=== PATIENT | female | born 1990 | race Caucasian/White ===

== ENCOUNTER 2019-09-04 20:10 | Emergency (ER) | payer OTHER ==
[~2019-09-04] VITALS: Ht 154.9 cm; Wt 113.4 kg
[~2019-09-04 20:10] MED LIST: SPRINTEC1 EACH
[2019-09-04] MEDS ORDERED: AMOXIL 875 MG875 M1 PO (20:27)
[2019-09-04] MEDS ORDERED: PROMETHAZINE-D473 M1 PO (20:27)
[2019-09-04] MEDS ORDERED: TESSALON PERLE100 MG PO (20:28)
[2019-09-04 20:48] LABS: INFLUENZA A ANTIGEN Positive (Negative); INFLUENZA B ANTIGEN Negative (Negative)
[2019-09-04 21:06] LABS: ABSOLUTE EOSINOPHILS 0.1 thou/uL (0.0-0.7); ABSOLUTE LYMPHOCYTES 0.3 thou/uL (0.8-5.3); ABSOLUTE MONOCYTES 0.6 thou/uL (0.0-1.2); ABSOLUTE NEUTROPHILS 5.6 thou/uL (1.6-8.1); BASOPHILS 0.4 %; EOSINOPHILS 0.8 %; HEMATOCRIT 38.6 % (37.0-47.0); HEMOGLOBIN 13.4 gm/dL (12.0-15.0); LYMPHOCYTES 5.1 %; MCH 32.1 pg (26.0-34.0); MCHC 34.7 g/dL (28.0-37.0); MCV 92.6 fL (80.0-100.0); MONOCYTES 8.8 %; NUCLEATED RBCS 0 /100WBC; PLATELET COUNT* 225 thou/uL (150-400); POLYS 84.9 %; RBC 4.17 mil/uL (4.20-5.00); RDW-CV 12.6 % (10.5-14.5); WBC 6.6 thou/uL (4.0-11.0)
[2019-09-04 21:15] LABS: CALCIUM 7.9 mg/dL (8.5-10.1); CREATININE 0.9 mg/dL (0.6-1.3); POTASSIUM 3.4 mmol/L (3.5-5.1)
[2019-09-04 21:20] LABS: ALBUMIN 3.7 g/dL (3.4-5.0); TOTAL BILIRUBIN 0.5 mg/dL (<0.1-1.0); TOTAL PROTEIN 6.8 g/dL (6.4-8.2)
[2019-09-04] MEDS ORDERED: PROAIR HFA8.5 GM INH (22:15)
[2019-09-04] MEDS ORDERED: TAMIFLU75 MG PO (22:15)
[2019-09-04] MEDS ORDERED: ONDANSETRON ODT4 MG PO (22:15)
[2019-09-04] MEDS ORDERED: PROMETHAZI6.25 MG/5 PO (22:15)
[2019-09-04 22:42] VITALS: BP 127/80
== END 2019-09-04 22:43 | disposition home or self-care (01) ==
LOC: M.ERS 20:10
PROVIDERS: Physician Assistant
DX: J10.1 Influenza due to other identified influenza virus with other respiratory manifestations (principal); J20.9 Acute bronchitis, unspecified; R11.2 Nausea with vomiting, unspecified

== ENCOUNTER 2021-09-01 16:07 | Inpatient (IN) | payer OTHER ==
[~2021-09-01] VITALS: Ht 154.9 cm; Wt 103.0 kg
[~2021-09-01 16:07] MED LIST changes: +AMOXIL 875 MG875 M1 PO; +ONDANSETRON ODT4 MG PO; +PROAIR HFA8.5 GM INH; +PROMETHAZI6.25 MG/5 PO; +PROMETHAZINE-D473 M1 PO; +TAMIFLU75 MG PO; +TESSALON PERLE100 MG PO
[2021-09-01 16:53] VITALS: BP 153/81
[2021-09-01 17:46] LABS: ABSOLUTE LYMPHOCYTES 0.5 thou/uL (0.8-5.3); ABSOLUTE MONOCYTES 0.1 thou/uL (0.0-1.2); ABSOLUTE NEUTROPHILS 2.1 thou/uL (1.6-8.1); BASOPHILS 0.6 %; HEMOGLOBIN 13.9 gm/dL (12.0-15.0); LYMPHOCYTES 19.9 %; MCH 31.5 pg (26.0-34.0); MCV 92.6 fL (80.0-100.0); MPV 8.2 fl. (7.2-11.1); NUCLEATED RBCS 0 /100WBC; PLATELET COUNT* 206 thou/uL (150-400); POLYS 75.5 %; RBC 4.42 mil/uL (4.20-5.00); RDW-CV 12.9 % (10.5-14.5); WBC 2.7 thou/uL (4.0-11.0)
[2021-09-01 17:52] LABS: CALCIUM 8.2 mg/dL (8.5-10.1); CREATININE 0.9 mg/dL (0.6-1.3); POTASSIUM 3.3 mmol/L (3.5-5.1)
[2021-09-01 18:07] LABS: ALBUMIN 3.2 g/dL (3.4-5.0); TOTAL BILIRUBIN 0.5 mg/dL (<0.1-1.0); TOTAL PROTEIN 7.1 g/dL (6.4-8.2)
[2021-09-01 20:21] LABS: INFLUENZA A ANTIGEN Negative (Negative); INFLUENZA B ANTIGEN Negative (Negative)
[2021-09-01 20:48] LABS: BE -2.3 mmol/L (-2 to +3); PCO2 32.2 mmHg (35.0-45.0); pH 7.434 (7.340-7.450)
[2021-09-01 23:26] VITALS: BP 135/54
[2021-09-02 04:04] VITALS: BP 123/75
[2021-09-02 08:00] VITALS: BP 147/77
--- NOTE | 2021-09-02 10:38 | EKG ---
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 : 1990 Requested By: Carmita Hernandez Order Number: [id number] MD: Shalom Sheridan Measurements Intervals [place] Rate: 126 P: 27 AK: 125 QRS: 45 QRSD: 80 T: -25 QT: 297 QTc: 430 Interpretive Statements Sinus tachycardia RSR' in V1 or V2, probably normal variant Borderline Q waves in inferior leads Baseline wander in lead(s) V6 No previous ECG available for comparison Electronically Signed On 09-02-2021 10:38:30 EROSION CONTROL COORDINATOR by Shalom Sheridan [email or web address] <ELECTRONICALLY SIGNED> By: Shalom Sheridan MD, FACC 09/02/21 1038 1746 1746 Shalom Sheridan MD, FAC /EPI
[2021-09-02 12:00] VITALS: BP 142/72
[2021-09-02 16:00] VITALS: BP 140/66
[2021-09-03] VITALS (10 sets, daily range): BP systolic 110–146; BP diastolic 66–98
[2021-09-03 01:49] LABS: BE -2.9 mmol/L (-2 to +3); PCO2 33.1 mmHg (35.0-45.0); PO2 79.5 mmHg (75.0-100.0); pH 7.416 (7.340-7.450)
[2021-09-03 04:39] LABS: HEMATOCRIT 37.8 % (37.0-47.0); HEMOGLOBIN 12.6 gm/dL (12.0-15.0); MCH 31.2 pg (26.0-34.0); MCHC 33.3 g/dL (28.0-37.0); MCV 93.6 fL (80.0-100.0); MPV 8.7 fl. (7.2-11.1); RBC 4.04 mil/uL (4.20-5.00); RDW-CV 12.9 % (10.5-14.5); WBC 5.6 thou/uL (4.0-11.0)
[2021-09-03 05:36] LABS: ALBUMIN 2.7 g/dL (3.4-5.0); CALCIUM 7.7 mg/dL (8.5-10.1); CREATININE 0.7 mg/dL (0.6-1.3); POTASSIUM 4.3 mmol/L (3.5-5.1); TOTAL BILIRUBIN 0.5 mg/dL (<0.1-1.0); TOTAL PROTEIN 5.7 g/dL (6.4-8.2)
[2021-09-03 18:01] LABS: BE -1.8 mmol/L (-2 to +3); PCO2 32.4 mmHg (35.0-45.0); PO2 112.6 mmHg (75.0-100.0)
--- NOTE | 2021-09-03 18:21 | CON ---
[address] [address] CONSULTATION Name: BRIDGETTE DELAROSA Room: [address] IN M.R.#: [id number] Admission: 09/01/21 Attend Phys: Etienne Kerr Discharge: Date of : 89 Report #: [id number] THIS REPORT FOR: cc: FAM - No family physician/PCP FAM - No family physician/PCP True Altamirano MD ~ DATE OF CONSULTATION: 09/03/[address] Frieda Gaming. INDICATION FOR CONSULTATION: COVID-19 and also hemoptysis. HISTORY OF PRESENT ILLNESS: This is a 30-year-old female. She does have an elevated body mass index at around 38. She does not have any other past medical history. She is a lifetime nonsmoker, has a history of marijuana use, now is here with respiratory illness, short of breath, coughing, initially also had decrease in appetite and diarrhea as well as chills and some left lower quadrant abdominal pain, was found to be positive for COVID, initially was resistant to remdesivir, but later on agreed. There has been a progressive worsening in her respiratory status since admission. Initially, she was on 2 liters nasal cannula. This has progressed to her now being on 100% FiO2 with a BiPAP. The patient is significantly tachypneic with respiratory rate around 45. She is also tachycardic, heart rate has been 110-120, however, we have been able to bring up her O2 saturations into the mid 90s. The patient is able to provide only a limited history at this time. I am told that she did have some hemoptysis, although I do not have details available. The patient is unable to provide a full review of systems at this time. PAST MEDICAL HISTORY: She is overweight with a body mass index of 38, otherwise no other known past medical history. CURRENT MEDICATIONS: List in [employer] reviewed. HOME MEDICATIONS: There is an old list, which is in [employer], which is also reviewed. ALLERGIES: No known drug allergies. SOCIAL HISTORY: History of marijuana use. No known history of smoking or excessive alcohol use. FAMILY HISTORY: No pertinent family history. VACCINATION HISTORY: Not vaccinated [place]19[place] [address] CONSULTATION Name: BRIDGETTE DELAROSA Room: [address]#: [id number] Admission: 09/01/21 Attend Phys: Etienne Kerr Discharge: Date of : 89 Report #: [id number] PHYSICAL EXAMINATION: GENERAL: She is awake. She is tachycardic and tachypneic as described. VITAL SIGNS: Vitals are in [facility] reviewed, on BiPAP. NECK: Does not show raised JVP. CHEST: Breath sounds are bilaterally equal. No added sounds. Accessory muscle use. HEART: Regular. No murmur. ABDOMEN: Soft, nontender. EXTREMITIES: Lower extremities, trace edema, no calf tenderness. LABORATORY DATA: The patient's chest x-rays, CTA chest, CT abdomen and pelvis as well as lab work is in [facility] and this is all reviewed. ASSESSMENT AND PLAN: 1. Acute hypoxemic respiratory failure secondary to COVID-19. I adjusted the BiPAP. I will start a Precedex drip. We will give her 80 of Lasix IV stat. Hopefully, the patient's respiratory status will improve as a result of this therapy. If this is not the case, then we will need to endotracheally intubate in the near future. We will follow her very closely. 2. COVID-19. Agree with dexamethasone. We will also continue with remdesivir. Follow LFTs. I requested pharmacy to also get approval from Dr. Sheridan for 1 dose of Actemra. Convalescent plasma is no longer recommended for the new emergency use authorization from FDA except for immunocompromised patients. 3. Pulmonary infiltrates. Continue doxycycline. I switched ceftriaxone over to cefepime. I will try to get more history regarding how much hemoptysis the patient has had. If the patient has had significant hemoptysis, then I will be inclined to start either vancomycin or linezolid and switch doxycycline over to azithromycin. The patient's test is noted to be negative. 4. Hemoptysis. See discussion above. 5. Fluid overload. Lasix as above. 6. IV access as a PICC line. 7. Deep venous thrombosis prophylaxis, noted to be on intermediate dose Lovenox at this time. We will follow. 8. Gastrointestinal prophylaxis, Protonix. 9. Clostridium difficile prophylaxis, Lactinex. The patient is critically ill at this time. Total time spent providing critical care to this patient today exceeds 39 minutes. <ELECTRONICALLY SIGNED> By: True Altamirano MD 09/03/21 1821 1316 1404Agold Altamirano MD /nt
[2021-09-04] VITALS (33 sets, daily range): BP systolic 90–161; BP diastolic 48–101
[2021-09-04 05:27] LABS: ABSOLUTE LYMPHOCYTES 0.3 thou/uL (0.8-5.3); ABSOLUTE MONOCYTES 0.2 thou/uL (0.0-1.2); ABSOLUTE NEUTROPHILS 2.4 thou/uL (1.6-8.1); BASOPHILS 0.3 %; HEMATOCRIT 38.1 % (37.0-47.0); LYMPHOCYTES 11.7 %; MCH 32.1 pg (26.0-34.0); MCHC 34.1 g/dL (28.0-37.0); MCV 94.2 fL (80.0-100.0); MONOCYTES 5.4 %; MPV 8.4 fl. (7.2-11.1); NUCLEATED RBCS 0 /100WBC; PLATELET COUNT* 220 thou/uL (150-400); POLYS 82.6 %; RBC 4.05 mil/uL (4.20-5.00); RDW-CV 12.9 % (10.5-14.5); WBC 2.9 thou/uL (4.0-11.0)
[2021-09-04 06:11] LABS: ALBUMIN 2.3 g/dL (3.4-5.0); CALCIUM 6.9 mg/dL (8.5-10.1); CREATININE 0.7 mg/dL (0.6-1.3); MAGNESIUM 2.5 mg/dL (1.8-2.4); POTASSIUM 4.3 mmol/L (3.5-5.1); TOTAL BILIRUBIN 0.5 mg/dL (<0.1-1.0)
[2021-09-04 08:43] LABS: BE 0.2 mmol/L (-2 to +3); PO2 66.1 mmHg (75.0-100.0); pH 7.395 (7.340-7.450)
[2021-09-05] VITALS (75 sets, daily range): BP systolic 75–149; BP diastolic 46–92
[2021-09-05 06:13] LABS: HEMATOCRIT 36.3 % (37.0-47.0); HEMOGLOBIN 12.3 gm/dL (12.0-15.0); MCHC 33.7 g/dL (28.0-37.0); MCV 94.7 fL (80.0-100.0); MPV 8.6 fl. (7.2-11.1); NUCLEATED RBCS 0 /100WBC; PLATELET COUNT* 243 thou/uL (150-400); RBC 3.84 mil/uL (4.20-5.00); RDW-CV 12.6 % (10.5-14.5)
[2021-09-05 06:24] LABS: ABSOLUTE LYMPHOCYTES 0.5 thou/uL (0.8-5.3); WBC 7.2 thou/uL (4.0-11.0)
[2021-09-05 06:25] LABS: ABSOLUTE EOSINOPHILS 0.1 thou/uL (0.0-0.7); ABSOLUTE MONOCYTES 0.4 thou/uL (0.0-1.2); ABSOLUTE NEUTROPHILS 6.3 thou/uL (1.6-8.1)
[2021-09-05 06:59] LABS: APTT 26.7 Seconds (25.0-31.3); INR 1.1; PROTIME 11.5 Seconds (9.20-11.50)
[2021-09-05 07:06] LABS: PHOSPHORUS* 2.8 mg/dL (2.5-4.9)
[2021-09-05 07:07] LABS: ALBUMIN 2.3 g/dL (3.4-5.0); CALCIUM 7.4 mg/dL (8.5-10.1); CREATININE 1.1 mg/dL (0.6-1.3); MAGNESIUM 2.8 mg/dL (1.8-2.4); POTASSIUM 3.7 mmol/L (3.5-5.1); TOTAL BILIRUBIN 0.5 mg/dL (<0.1-1.0); TOTAL PROTEIN 5.6 g/dL (6.4-8.2)
[2021-09-05 09:30] LABS: BE 0.6 mmol/L (-2 to +3); PCO2 47.1 mmHg (35.0-45.0); PO2 89.3 mmHg (75.0-100.0); pH 7.367 (7.340-7.450)
[2021-09-05 22:06] LABS: MYCOPLASMA PNEUMONIA IgM <770 U/mL (0-769)
[2021-09-05 23:06] LABS: MYCOPLASMA PNEUMONIA IgG 150 U/mL (0-99)
[2021-09-06] VITALS (42 sets, daily range): BP systolic 119–182; BP diastolic 81–104
[2021-09-06 05:43] LABS: ABSOLUTE LYMPHOCYTES 0.6 thou/uL (0.8-5.3); ABSOLUTE MONOCYTES 0.4 thou/uL (0.0-1.2); ABSOLUTE NEUTROPHILS 7.2 thou/uL (1.6-8.1); BASOPHILS 0.2 %; HEMATOCRIT 37.5 % (37.0-47.0); HEMOGLOBIN 12.7 gm/dL (12.0-15.0); LYMPHOCYTES 6.7 %; MCH 31.7 pg (26.0-34.0); MCHC 33.7 g/dL (28.0-37.0); MCV 94.1 fL (80.0-100.0); MPV 8.7 fl. (7.2-11.1); NUCLEATED RBCS 0 /100WBC; PLATELET COUNT* 178 thou/uL (150-400); POLYS 88.1 %; RBC 3.99 mil/uL (4.20-5.00); RDW-CV 12.5 % (10.5-14.5); WBC 8.2 thou/uL (4.0-11.0)
[2021-09-06 06:22] LABS: ALBUMIN 2.3 g/dL (3.4-5.0); CALCIUM 7.6 mg/dL (8.5-10.1); CREATININE 0.8 mg/dL (0.6-1.3); MAGNESIUM 2.6 mg/dL (1.8-2.4); POTASSIUM 4.2 mmol/L (3.5-5.1); TOTAL BILIRUBIN 0.4 mg/dL (<0.1-1.0); TOTAL PROTEIN 5.6 g/dL (6.4-8.2)
[2021-09-06 08:41] LABS: BE 2.5 mmol/L (-2 to +3); PCO2 45.3 mmHg (35.0-45.0); PO2 81.2 mmHg (75.0-100.0); pH 7.405 (7.340-7.450)
[2021-09-07] VITALS (45 sets, daily range): BP systolic 110–160; BP diastolic 52–90
[2021-09-07 04:32] LABS: HEMATOCRIT 38.5 % (37.0-47.0); HEMOGLOBIN 12.7 gm/dL (12.0-15.0); MCH 31.5 pg (26.0-34.0); MCV 95.6 fL (80.0-100.0); MPV 8.8 fl. (7.2-11.1); RBC 4.02 mil/uL (4.20-5.00); RDW-CV 12.7 % (10.5-14.5); WBC 12.9 thou/uL (4.0-11.0)
[2021-09-07 04:52] LABS: CALCIUM 7.5 mg/dL (8.5-10.1); CREATININE 0.8 mg/dL (0.6-1.3); POTASSIUM 4.3 mmol/L (3.5-5.1)
[2021-09-08] VITALS (15 sets, daily range): BP systolic 92–139; BP diastolic 58–88
[2021-09-08 05:02] LABS: HEMATOCRIT 38.5 % (37.0-47.0); HEMOGLOBIN 12.6 gm/dL (12.0-15.0); MCH 30.9 pg (26.0-34.0); MCHC 32.8 g/dL (28.0-37.0); MCV 94.3 fL (80.0-100.0); MPV 8.5 fl. (7.2-11.1); RBC 4.08 mil/uL (4.20-5.00); RDW-CV 12.5 % (10.5-14.5); WBC 18.7 thou/uL (4.0-11.0)
[2021-09-08 05:11] LABS: CALCIUM 7.1 mg/dL (8.5-10.1); CREATININE 0.7 mg/dL (0.6-1.3); POTASSIUM 4.5 mmol/L (3.5-5.1)
[2021-09-08 09:46] LABS: BE 3.7 mmol/L (-2 to +3); PCO2 40.1 mmHg (35.0-45.0); PO2 104.6 mmHg (75.0-100.0); pH 7.458 (7.340-7.450)
--- NOTE | 2021-09-08 15:24 | 2DMMODE ---
[place] [address] 2 D/M-MODE ECHOCARDIOGRAM Name: BRIDGETTE DELAROSA Room: [address] IN [facility]#: [id number] Admission: 09/01/21 Attend Phys: David Sánchez Discharge: Date of : 89 Date of Service: 09/08/21 1524 Report #: [id number] THIS REPORT FOR: cc: FAM - No family physician/PCP FAM - No family physician/PCP Justin Khan MD [facility] ~ APPROVED REPORT Study performed: 09/08/2021 11:31:21 EXAM: Comprehensive 2D, Doppler, and color-flow Echocardiogram Patient Location: In-Patient Room #: [facility] Status: routine BSA: 1.94 HR: 90 bpm BP: 118/88 mmHg Rhythm: NSR Other Information Study Quality: Good Indications Dyspnea 2D Dimensions IVSd: 11.66 (7-11mm) LVOT Diam: 20.98 (18-24mm) LVDd: 30.77 mm PWd: 10.55 (7-11mm) Ascending Ao: 26.80 (22-36mm) LVDs: 20.46 (25-40mm) Aortic Root: 28.79 mm Volumes Left Atrial Volume (Systole) LA ESV Index: 10.30 mL/m2 Aortic Valve AoV Peak Richard.: 1.23 m/s AO Peak Gr.: 6.04 mmHg LVOT Max P.45 mmHg AO Mean Gr.: 3.41 mmHg LVOT Mean P.86 mmHg LVOT Max V: 0.93 m/s AO V2 VTI: 16.18 cm LVOT Mean V: 0.63 m/s EVI (VTI): 3.25 cm2 LVOT V1 VTI: 15.22 [place] [address] 2 D/M-MODE ECHOCARDIOGRAM Name: BRIDGETTE DELAROSA Room: [address] IN ..#: [id number] Admission: 09/01/21 Attend Phys: David Sánchez Discharge: Date of : 89 Date of Service: 09/08/21 1524 Report #: [id number] Pulmonary Valve PV Peak Richard.: 1.06 m/s PV Peak Gr.: 4.52 mmHg Left Ventricle The left ventricle is normal size. There is normal LV segmental wall motion. Borderline concentric left ventricular hypertrophy. Left ventricular systolic function is normal. The left ventricular ejection fraction is within the normal range. LVEF is 60-65%. Grade I - abnormal relaxation pattern. Right Ventricle The right ventricle is normal size. The right ventricular systolic function is normal. Atria The left atrium size is normal. The right atrium size is normal. Aortic Valve The aortic valve is normal in structure. No aortic regurgitation is present. There is no aortic valvular stenosis. Mitral Valve The mitral valve is normal in structure. There is no mitral valve regurgitation noted. No evidence of mitral valve stenosis. Tricuspid Valve The tricuspid valve is normal in structure. Trace tricuspid regurgitation. Unable to assess PA pressure. Pulmonic Valve The pulmonary valve is normal in structure. There is no pulmonic valvular regurgitation. Great Vessels The aortic root is normal in size. IVC is normal in size and collapses >50% with inspiration. Pericardium There is no pericardial effusion. <Conclusion> The left ventricle is normal size. Borderline concentric left ventricular hypertrophy. Left ventricular systolic function is normal. The left ventricular ejection fraction [place] [address] 2 D/M-MODE ECHOCARDIOGRAM Name: BRIDGETTE DELAROSA Dustin Room: [address] IN [facility].#: [id number] Admission: 09/01/21 Attend Phys: David Sánchez Discharge: Date of : 89 Date of Service: 09/08/21 1524 Report #: [id number] range. LVEF is 60-65%. Grade I - abnormal relaxation pattern. The right ventricle is normal size. The left atrium size is normal. The aortic valve is normal in structure. The mitral valve is normal in structure. The tricuspid valve is normal in structure. IVC is normal in size and collapses >50% with inspiration. There is no pericardial effusion. There is normal LV segmental wall motion. <ELECTRONICALLY SIGNED> By: Justin Khan MD, [facility] 09/08/21 1524 1524 1524 Justin Khan MD, FACC /INF
[2021-09-08 18:37] LABS: CALCIUM 7.5 mg/dL (8.5-10.1); CREATININE 0.8 mg/dL (0.6-1.3); MAGNESIUM 2.3 mg/dL (1.8-2.4); POTASSIUM 3.9 mmol/L (3.5-5.1)
[2021-09-08 18:40] LABS: APTT 23.7 Seconds (25.0-31.3); INR 1.3
[2021-09-09] VITALS (25 sets, daily range): BP systolic 87–139; BP diastolic 54–86
[2021-09-09 03:35] LABS: HEMATOCRIT 37.6 % (37.0-47.0); HEMOGLOBIN 12.5 gm/dL (12.0-15.0); MCH 31.3 pg (26.0-34.0); MCHC 33.2 g/dL (28.0-37.0); MCV 94.5 fL (80.0-100.0); MPV 8.7 fl. (7.2-11.1); NUCLEATED RBCS 0 /100WBC; PLATELET COUNT* 162 thou/uL (150-400); RBC 3.99 mil/uL (4.20-5.00); RDW-CV 12.5 % (10.5-14.5)
[2021-09-09 03:45] LABS: ALBUMIN 2.6 g/dL (3.4-5.0); CALCIUM 7.8 mg/dL (8.5-10.1); CREATININE 0.9 mg/dL (0.6-1.3); MAGNESIUM 2.4 mg/dL (1.8-2.4); POTASSIUM 4.5 mmol/L (3.5-5.1); TOTAL BILIRUBIN 0.5 mg/dL (<0.1-1.0); TOTAL PROTEIN 5.3 g/dL (6.4-8.2)
[2021-09-09 04:25] LABS: PHOSPHORUS* 3.6 mg/dL (2.5-4.9)
[2021-09-09 06:15] LABS: ABSOLUTE EOSINOPHILS 0.2 thou/uL (0.0-0.7); ABSOLUTE LYMPHOCYTES 0.9 thou/uL (0.8-5.3); ABSOLUTE MONOCYTES 0.7 thou/uL (0.0-1.2); ABSOLUTE NEUTROPHILS 21.2 thou/uL (1.6-8.1); PLATELET ESTIMATE ADEQUATE
[2021-09-09 08:17] LABS: BE -0.3 mmol/L (-2 to +3); PCO2 38.4 mmHg (35.0-45.0); PO2 82.9 mmHg (75.0-100.0); pH 7.414 (7.340-7.450)
[2021-09-09 16:48] LABS: URINE BILIRUBIN NEGATIVE (Negative); URINE BLOOD 2+ (Negative); URINE CLARITY CLEAR; URINE COLOR ORANGE; URINE GLUCOSE-RANDOM NEGATIVE (Negative); URINE KETONES NEGATIVE (Negative); URINE LEUKOCYTES-REFLEX NEGATIVE (Negative); URINE NITRITE-REFLEX NEGATIVE (Negative); URINE PROTEIN TRACE (Negative); URINE SPECIFIC GRAVITY >= 1.030 (1.005-1.030); URINE UROBILINOGEN 0.2 E.U./dl (0.2-1.0)
[2021-09-09 17:10] LABS: BACTERIA-REFLEX None Seen /HPF (None Seen); CASTS None Seen /LPF (None Seen); CRYSTALS None Seen /LPF (None Seen); SQUAMOUS NONE SEEN /LPF (0-3); URINE RBC 3-10 Few /HPF (0-2); URINE WBC-REFLEX None Seen /HPF (0-5); YEAST-REFLEX Present (None Seen)
[2021-09-10] VITALS (24 sets, daily range): BP systolic 110–147; BP diastolic 45–91
[2021-09-10 04:25] LABS: HEMATOCRIT 37.5 % (37.0-47.0); HEMOGLOBIN 12.4 gm/dL (12.0-15.0); MCV 93.9 fL (80.0-100.0); MPV 9.6 fl. (7.2-11.1); RBC 3.99 mil/uL (4.20-5.00); RDW-CV 12.7 % (10.5-14.5)
[2021-09-10 04:56] LABS: CALCIUM 8.4 mg/dL (8.5-10.1); CREATININE 0.8 mg/dL (0.6-1.3)
[2021-09-11] VITALS (23 sets, daily range): BP systolic 83–144; BP diastolic 39–88
[2021-09-11 15:02] LABS: ABSOLUTE BASOPHILS 0.1 thou/uL (0.0-0.2); ABSOLUTE EOSINOPHILS 0.1 thou/uL (0.0-0.7); ABSOLUTE LYMPHOCYTES 1.6 thou/uL (0.8-5.3); ABSOLUTE MONOCYTES 0.8 thou/uL (0.0-1.2); BASOPHILS 0.3 %; EOSINOPHILS 0.6 %; HEMATOCRIT 37.7 % (37.0-47.0); HEMOGLOBIN 12.6 gm/dL (12.0-15.0); LYMPHOCYTES 7.7 %; MCH 31.6 pg (26.0-34.0); MCHC 33.5 g/dL (28.0-37.0); MCV 94.3 fL (80.0-100.0); MONOCYTES 3.8 %; MPV 9.5 fl. (7.2-11.1); NUCLEATED RBCS 0 /100WBC; PLATELET COUNT* 177 thou/uL (150-400); POLYS 87.6 %; RBC 3.99 mil/uL (4.20-5.00); RDW-CV 12.6 % (10.5-14.5); WBC 20.5 thou/uL (4.0-11.0)
[2021-09-11 15:18] LABS: ALBUMIN 3.7 g/dL (3.4-5.0); CALCIUM 8.6 mg/dL (8.5-10.1); CREATININE 0.7 mg/dL (0.6-1.3); POTASSIUM 4.1 mmol/L (3.5-5.1); TOTAL BILIRUBIN 0.7 mg/dL (<0.1-1.0); TOTAL PROTEIN 5.9 g/dL (6.4-8.2)
[2021-09-12] VITALS (46 sets, daily range): BP systolic 75–133; BP diastolic 43–88
[2021-09-12 12:44] LABS: ABSOLUTE LYMPHOCYTES 1.8 thou/uL (0.8-5.3); ABSOLUTE NEUTROPHILS 28.9 thou/uL (1.6-8.1); BASOPHILS 0.1 %; EOSINOPHILS 0.1 %; HEMOGLOBIN 12.7 gm/dL (12.0-15.0); LYMPHOCYTES 5.6 %; MCH 31.2 pg (26.0-34.0); MCHC 32.4 g/dL (28.0-37.0); MCV 96.1 fL (80.0-100.0); MONOCYTES 3.2 %; MPV 9.2 fl. (7.2-11.1); NUCLEATED RBCS 0 /100WBC; PLATELET COUNT* 251 thou/uL (150-400); RBC 4.06 mil/uL (4.20-5.00); WBC 31.8 thou/uL (4.0-11.0)
[2021-09-12 12:57] LABS: ALBUMIN 3.2 g/dL (3.4-5.0); CALCIUM 7.3 mg/dL (8.5-10.1); CREATININE 0.7 mg/dL (0.6-1.3); MAGNESIUM 2.2 mg/dL (1.8-2.4); PHOSPHORUS* 3.9 mg/dL (2.5-4.9); POTASSIUM 4.2 mmol/L (3.5-5.1); TOTAL BILIRUBIN 0.6 mg/dL (<0.1-1.0); TOTAL PROTEIN 5.4 g/dL (6.4-8.2)
[2021-09-13] VITALS (90 sets, daily range): BP systolic 57–144; BP diastolic 31–92
[2021-09-13 05:33] LABS: HEMATOCRIT 38.5 % (37.0-47.0); HEMOGLOBIN 12.5 gm/dL (12.0-15.0); MCHC 32.4 g/dL (28.0-37.0); MCV 95.7 fL (80.0-100.0); MPV 9.7 fl. (7.2-11.1); NUCLEATED RBCS 0 /100WBC; PLATELET COUNT* 272 thou/uL (150-400); RBC 4.02 mil/uL (4.20-5.00); RDW-CV 13.4 % (10.5-14.5); WBC 34.4 thou/uL (4.0-11.0)
[2021-09-13 06:00] LABS: ALBUMIN 3.3 g/dL (3.4-5.0); CALCIUM 7.8 mg/dL (8.5-10.1); CREATININE 0.6 mg/dL (0.6-1.3); POTASSIUM 4.6 mmol/L (3.5-5.1); TOTAL BILIRUBIN 1.2 mg/dL (<0.1-1.0); TOTAL PROTEIN 5.4 g/dL (6.4-8.2)
[2021-09-13 08:12] LABS: ABSOLUTE LYMPHOCYTES 1.4 thou/uL (0.8-5.3); ABSOLUTE MONOCYTES 1.7 thou/uL (0.0-1.2); ABSOLUTE NEUTROPHILS 31.3 thou/uL (1.6-8.1); PLATELET ESTIMATE ADEQUATE
[2021-09-14] VITALS (64 sets, daily range): BP systolic 81–135; BP diastolic 36–95
[2021-09-14 05:25] LABS: HEMATOCRIT 38.7 % (37.0-47.0); HEMOGLOBIN 12.7 gm/dL (12.0-15.0); MCHC 32.6 g/dL (28.0-37.0); MCV 94.8 fL (80.0-100.0); MPV 9.5 fl. (7.2-11.1); RBC 4.09 mil/uL (4.20-5.00); RDW-CV 13.1 % (10.5-14.5); WBC 21.7 thou/uL (4.0-11.0)
[2021-09-14 05:45] LABS: CALCIUM 7.9 mg/dL (8.5-10.1); CREATININE 0.6 mg/dL (0.6-1.3); POTASSIUM 4.7 mmol/L (3.5-5.1)
[2021-09-14 05:57] LABS: URINE BILIRUBIN NEGATIVE (Negative); URINE BLOOD 3+ (Negative); URINE CLARITY CLOUDY; URINE COLOR YELLOW; URINE GLUCOSE-RANDOM 2+ (Negative); URINE KETONES NEGATIVE (Negative); URINE LEUKOCYTES-REFLEX NEGATIVE (Negative); URINE NITRITE-REFLEX NEGATIVE (Negative); URINE PROTEIN NEGATIVE (Negative); URINE UROBILINOGEN 0.2 E.U./dl (0.2-1.0)
[2021-09-14 07:01] LABS: BACTERIA-REFLEX >30 Many /HPF (None Seen); CASTS None Seen /LPF (None Seen); CRYSTALS None Seen /LPF (None Seen); SQUAMOUS 0-3 Few /LPF (0-3); URINE RBC >20 Many /HPF (0-2); URINE WBC-REFLEX 0-5 Rare /HPF (0-5); YEAST-REFLEX Present (None Seen)
[2021-09-14 09:21] LABS: PCO2 36.6 mmHg (35.0-45.0); PO2 111.6 mmHg (75.0-100.0); pH 7.476 (7.340-7.450)
[2021-09-14 13:36] LABS: ALBUMIN 3.4 g/dL (3.4-5.0); DIRECT BILIRUBIN 0.1 mg/dL (<0.1-0.3); TOTAL BILIRUBIN 0.6 mg/dL (<0.1-1.0)
[2021-09-15] VITALS (81 sets, daily range): BP systolic 65–156; BP diastolic 33–100
[2021-09-15 13:30] LABS: ABSOLUTE BASOPHILS 0.1 thou/uL (0.0-0.2); ABSOLUTE LYMPHOCYTES 2.4 thou/uL (0.8-5.3); ABSOLUTE MONOCYTES 1.2 thou/uL (0.0-1.2); ABSOLUTE NEUTROPHILS 20.2 thou/uL (1.6-8.1); BASOPHILS 0.6 %; EOSINOPHILS 0.1 %; HEMATOCRIT 39.5 % (37.0-47.0); HEMOGLOBIN 12.8 gm/dL (12.0-15.0); LYMPHOCYTES 10.2 %; MCHC 32.4 g/dL (28.0-37.0); MCV 95.7 fL (80.0-100.0); MONOCYTES 4.9 %; MPV 9.6 fl. (7.2-11.1); NUCLEATED RBCS 0 /100WBC; PLATELET COUNT* 305 thou/uL (150-400); POLYS 84.2 %; RBC 4.13 mil/uL (4.20-5.00); RDW-CV 13.6 % (10.5-14.5)
[2021-09-15 13:39] LABS: CALCIUM 7.1 mg/dL (8.5-10.1); CREATININE 0.8 mg/dL (0.6-1.3); TOTAL BILIRUBIN 0.5 mg/dL (<0.1-1.0); TOTAL PROTEIN 5.3 g/dL (6.4-8.2)
--- NOTE | 2021-09-15 15:52 | 2DMMODE ---
[place] [address] 2 D/M-MODE ECHOCARDIOGRAM Name: BRIDGETTE DELAROSA Room: [address] ADM [place] .R.#: [id number] Admission: 09/01/21 Attend Phys: David Sánchez Discharge: Date of : 89 Date of Service: 09/15/21 1552 Report #: [id number] THIS REPORT FOR: cc: FAM - No family physician/PCP FAM - No family physician/PCP Jeffrey Cohen MD [facility] ~ APPROVED REPORT Study performed: 09/15/2021 13:28:22 EXAM: Limited 2D Echocardiogram Patient Location: In-Patient Room #: [facility] Status: routine BSA: 1.95 HR: 113 bpm BP: 111/69 mmHg Rhythm: NSR Other Information Study Quality: Good Indications Pulmonary Embolism Left Ventricle The left ventricle is normal size. There is normal LV segmental wall motion. Borderline concentric left ventricular hypertrophy. The left ventricular systolic function is normal. The left ventricular ejection fraction is within the normal range. LVEF is 60-65%. Right Ventricle The right ventricle is normal size. The right ventricular systolic function is normal. Atria The left atrium size is normal. The right atrium size is normal. Aortic Valve The aortic valve is normal in structure. Mitral Valve The mitral valve is normal in structure. [facility] [address] [place] [address] 2 D/M-MODE ECHOCARDIOGRAM Name: BRIDGETTE DELAROSA Room: [address] ADM IN M.R.#: [id number] Admission: 09/01/21 Attend Phys: David Sánchez Discharge: Date of : 89 Date of Service: 09/15/211551 Report #: [id number] Tricuspid Valve The tricuspid valve is normal in structure. Unable to assess PA pressure. Trace tricuspid regurgitation. Pulmonic Valve The pulmonary valve is normal in structure. Great Vessels The aortic root is normal in size. IVC is not well visualized. Pericardium There is no pericardial effusion. <Conclusion> The left ventricular systolic function is normal. The left ventricular ejection fraction is within the normal range. Unable to assess PA pressure. Trace tricuspid regurgitation. There is no pericardial effusion. <ELECTRONICALLY SIGNED> By: Jeffrey Cohen MD, FACC 09/15/211551 51 51 Jeffrey Cohen MD, FACC /INF
[2021-09-16] VITALS (82 sets, daily range): BP systolic 81–143; BP diastolic 38–92
[2021-09-16 04:48] LABS: HEMATOCRIT 37.4 % (37.0-47.0); HEMOGLOBIN 12.5 gm/dL (12.0-15.0); MCH 31.5 pg (26.0-34.0); MCHC 33.4 g/dL (28.0-37.0); MCV 94.2 fL (80.0-100.0); MPV 9.1 fl. (7.2-11.1); NUCLEATED RBCS 0 /100WBC; PLATELET COUNT* 280 thou/uL (150-400); RBC 3.97 mil/uL (4.20-5.00); RDW-CV 13.5 % (10.5-14.5); WBC 22.8 thou/uL (4.0-11.0)
[2021-09-16 05:06] LABS: APTT 28.5 Seconds (25.0-31.3); INR 1.2; PROTIME 12.1 Seconds (9.20-11.50)
[2021-09-16 05:16] LABS: PHOSPHORUS* 2.8 mg/dL (2.5-4.9)
[2021-09-16 05:56] LABS: ALBUMIN 2.9 g/dL (3.4-5.0); CREATININE 0.6 mg/dL (0.6-1.3); MAGNESIUM 1.9 mg/dL (1.8-2.4); POTASSIUM 3.8 mmol/L (3.5-5.1); TOTAL BILIRUBIN 0.5 mg/dL (<0.1-1.0); TOTAL PROTEIN 5.1 g/dL (6.4-8.2)
[2021-09-16 07:07] LABS: ABSOLUTE BASOPHILS 0.2 thou/uL (0.0-0.2); ABSOLUTE MONOCYTES 1.8 thou/uL (0.0-1.2); ABSOLUTE NEUTROPHILS 15.7 thou/uL (1.6-8.1); PLATELET ESTIMATE ADEQUATE
[2021-09-16 14:09] LABS: BE 1.7 mmol/L (-2 to +3); PCO2 31.4 mmHg (35.0-45.0); PO2 77.8 mmHg (75.0-100.0); pH 7.502 (7.340-7.450)
[2021-09-16 20:48] LABS: BE -1.8 mmol/L (-2 to +3); PO2 VENOUS 63.6 mmHg (35.0-45.0)
[2021-09-16 20:56] LABS: CALCIUM 6.8 mg/dL (8.5-10.1); CREATININE 0.6 mg/dL (0.6-1.3)
[2021-09-16 20:59] LABS: POTASSIUM 7.8 mmol/L (3.5-5.1)
[2021-09-17] VITALS (110 sets, daily range): BP systolic 47–169; BP diastolic 22–92
[2021-09-17 04:22] LABS: ABSOLUTE BASOPHILS 0.2 thou/uL (0.0-0.2); ABSOLUTE LYMPHOCYTES 3.8 thou/uL (0.8-5.3); ABSOLUTE MONOCYTES 0.7 thou/uL (0.0-1.2); ABSOLUTE NEUTROPHILS 20.1 thou/uL (1.6-8.1); BASOPHILS 0.6 %; EOSINOPHILS 0.2 %; HEMATOCRIT 35.6 % (37.0-47.0); HEMOGLOBIN 11.6 gm/dL (12.0-15.0); LYMPHOCYTES 15.4 %; MCH 30.8 pg (26.0-34.0); MCHC 32.5 g/dL (28.0-37.0); MCV 94.9 fL (80.0-100.0); MONOCYTES 2.8 %; MPV 9.7 fl. (7.2-11.1); NUCLEATED RBCS 0 /100WBC; PLATELET COUNT* 303 thou/uL (150-400); RBC 3.75 mil/uL (4.20-5.00); RDW-CV 13.5 % (10.5-14.5); WBC 24.8 thou/uL (4.0-11.0)
[2021-09-17 04:29] LABS: PHOSPHORUS* 2.4 mg/dL (2.5-4.9)
[2021-09-17 04:30] LABS: ALBUMIN 2.6 g/dL (3.4-5.0); CALCIUM 6.5 mg/dL (8.5-10.1); CREATININE 0.6 mg/dL (0.6-1.3); MAGNESIUM 2.1 mg/dL (1.8-2.4); TOTAL BILIRUBIN 0.4 mg/dL (<0.1-1.0); TOTAL PROTEIN 4.9 g/dL (6.4-8.2)
[2021-09-17 04:40] LABS: POTASSIUM 3.8 mmol/L (3.5-5.1)
[2021-09-17 08:34] LABS: BE -0.7 mmol/L (-2 to +3); PCO2 39.1 mmHg (35.0-45.0); PO2 73.7 mmHg (75.0-100.0); pH 7.403 (7.340-7.450)
[2021-09-17 18:12] LABS: CALCIUM 6.8 mg/dL (8.5-10.1); CREATININE 0.5 mg/dL (0.6-1.3); MAGNESIUM 2.3 mg/dL (1.8-2.4)
[2021-09-17 18:13] LABS: POTASSIUM 5.4 mmol/L (3.5-5.1)
[2021-09-17 20:47] LABS: CALCIUM 6.5 mg/dL (8.5-10.1); CREATININE 0.5 mg/dL (0.6-1.3); POTASSIUM 4.7 mmol/L (3.5-5.1)
[2021-09-18] VITALS (84 sets, daily range): BP systolic 66–126; BP diastolic 25–85
[2021-09-18 04:25] LABS: ABSOLUTE BASOPHILS 0.3 thou/uL (0.0-0.2); ABSOLUTE LYMPHOCYTES 1.8 thou/uL (0.8-5.3); ABSOLUTE MONOCYTES 0.6 thou/uL (0.0-1.2); ABSOLUTE NEUTROPHILS 20.9 thou/uL (1.6-8.1); BASOPHILS 1.3 %; EOSINOPHILS 0.1 %; HEMATOCRIT 32.9 % (37.0-47.0); HEMOGLOBIN 10.8 gm/dL (12.0-15.0); LYMPHOCYTES 7.8 %; MCH 31.2 pg (26.0-34.0); MCHC 32.7 g/dL (28.0-37.0); MCV 95.5 fL (80.0-100.0); MONOCYTES 2.6 %; MPV 9.7 fl. (7.2-11.1); NUCLEATED RBCS 0 /100WBC; PLATELET COUNT* 267 thou/uL (150-400); POLYS 88.2 %; RBC 3.45 mil/uL (4.20-5.00); RDW-CV 13.4 % (10.5-14.5); WBC 23.7 thou/uL (4.0-11.0)
[2021-09-18 04:47] LABS: ALBUMIN 2.3 g/dL (3.4-5.0); CALCIUM 6.6 mg/dL (8.5-10.1); CREATININE 0.4 mg/dL (0.6-1.3); POTASSIUM 3.8 mmol/L (3.5-5.1); TOTAL BILIRUBIN 0.4 mg/dL (<0.1-1.0); TOTAL PROTEIN 4.7 g/dL (6.4-8.2)
[2021-09-18 04:48] LABS: PHOSPHORUS* 2.3 mg/dL (2.5-4.9)
[2021-09-18 08:46] LABS: BE -2.9 mmol/L (-2 to +3); PCO2 34.1 mmHg (35.0-45.0); PO2 76.2 mmHg (75.0-100.0); pH 7.409 (7.340-7.450)
[2021-09-18 18:02] LABS: ABSOLUTE BASOPHILS 0.3 thou/uL (0.0-0.2); ABSOLUTE LYMPHOCYTES 0.4 thou/uL (0.8-5.3); ABSOLUTE MONOCYTES 0.3 thou/uL (0.0-1.2); ABSOLUTE NEUTROPHILS 21.2 thou/uL (1.6-8.1); BASOPHILS 1.5 %; HEMOGLOBIN 11.3 gm/dL (12.0-15.0); MCH 31.4 pg (26.0-34.0); MCHC 33.1 g/dL (28.0-37.0); MONOCYTES 1.4 %; MPV 10.2 fl. (7.2-11.1); NUCLEATED RBCS 0 /100WBC; PLATELET COUNT* 260 thou/uL (150-400); POLYS 95.1 %; RBC 3.58 mil/uL (4.20-5.00); RDW-CV 13.6 % (10.5-14.5); WBC 22.3 thou/uL (4.0-11.0)
[2021-09-19] VITALS (54 sets, daily range): BP systolic 91–128; BP diastolic 49–77
[2021-09-19 04:49] LABS: ABSOLUTE BASOPHILS 0.1 thou/uL (0.0-0.2); ABSOLUTE LYMPHOCYTES 0.8 thou/uL (0.8-5.3); ABSOLUTE MONOCYTES 0.5 thou/uL (0.0-1.2); ABSOLUTE NEUTROPHILS 16.8 thou/uL (1.6-8.1); BASOPHILS 0.4 %; EOSINOPHILS 0.2 %; HEMATOCRIT 28.6 % (37.0-47.0); HEMOGLOBIN 9.6 gm/dL (12.0-15.0); LYMPHOCYTES 4.4 %; MCH 32.1 pg (26.0-34.0); MCHC 33.5 g/dL (28.0-37.0); MCV 95.9 fL (80.0-100.0); MONOCYTES 2.7 %; MPV 10.4 fl. (7.2-11.1); NUCLEATED RBCS 0 /100WBC; PLATELET COUNT* 232 thou/uL (150-400); POLYS 92.3 %; RBC 2.98 mil/uL (4.20-5.00); RDW-CV 13.6 % (10.5-14.5); WBC 18.2 thou/uL (4.0-11.0)
[2021-09-19 05:16] LABS: PREALBUMIN 21.8 mg/dL (18.0-35.7)
[2021-09-19 05:19] LABS: PHOSPHORUS* 1.8 mg/dL (2.5-4.9)
[2021-09-19 06:00] LABS: CALCIUM 6.9 mg/dL (8.5-10.1); CREATININE 0.3 mg/dL (0.6-1.3); MAGNESIUM 2.4 mg/dL (1.8-2.4); POTASSIUM 3.6 mmol/L (3.5-5.1); TOTAL BILIRUBIN 0.5 mg/dL (<0.1-1.0); TOTAL PROTEIN 4.3 g/dL (6.4-8.2)
[2021-09-19 10:48] LABS: BE -1.8 mmol/L (-2 to +3); PCO2 40.2 mmHg (35.0-45.0); PO2 77.9 mmHg (75.0-100.0); pH 7.379 (7.340-7.450)
[2021-09-20] VITALS (46 sets, daily range): BP systolic 83–149; BP diastolic 34–95
[2021-09-20 05:51] LABS: HEMOGLOBIN 8.3 gm/dL (12.0-15.0); MCH 31.8 pg (26.0-34.0); MCHC 33.4 g/dL (28.0-37.0); MCV 95.3 fL (80.0-100.0); MPV 9.6 fl. (7.2-11.1); NUCLEATED RBCS 0 /100WBC; PLATELET COUNT* 199 thou/uL (150-400); RBC 2.62 mil/uL (4.20-5.00); RDW-CV 13.8 % (10.5-14.5); WBC 9.8 thou/uL (4.0-11.0)
[2021-09-20 06:45] LABS: ALBUMIN 2.5 g/dL (3.4-5.0); CREATININE 0.3 mg/dL (0.6-1.3); MAGNESIUM 2.6 mg/dL (1.8-2.4); TOTAL BILIRUBIN 0.5 mg/dL (<0.1-1.0); TOTAL PROTEIN 4.7 g/dL (6.4-8.2)
[2021-09-20 07:12] LABS: ABSOLUTE LYMPHOCYTES 0.6 thou/uL (0.8-5.3); ABSOLUTE MONOCYTES 0.3 thou/uL (0.0-1.2); ABSOLUTE NEUTROPHILS 8.9 thou/uL (1.6-8.1); PLATELET ESTIMATE ADEQUATE
[2021-09-20 07:21] LABS: PHOSPHORUS* 0.6 mg/dL (2.5-4.9)
[2021-09-20 09:13] LABS: BE 2.5 mmol/L (-2 to +3); PCO2 31.4 mmHg (35.0-45.0); PO2 80.8 mmHg (75.0-100.0); pH 7.521 (7.340-7.450)
[2021-09-21] VITALS (36 sets, daily range): BP systolic 86–161; BP diastolic 33–96
[2021-09-21 04:02] LABS: ABSOLUTE LYMPHOCYTES 0.8 thou/uL (0.8-5.3); ABSOLUTE MONOCYTES 0.2 thou/uL (0.0-1.2); ABSOLUTE NEUTROPHILS 4.8 thou/uL (1.6-8.1); BASOPHILS 0.2 %; EOSINOPHILS 0.5 %; HEMATOCRIT 22.7 % (37.0-47.0); HEMOGLOBIN 7.5 gm/dL (12.0-15.0); LYMPHOCYTES 13.3 %; MCH 31.9 pg (26.0-34.0); MCV 96.5 fL (80.0-100.0); MONOCYTES 3.1 %; MPV 9.5 fl. (7.2-11.1); NUCLEATED RBCS 0 /100WBC; PLATELET COUNT* 154 thou/uL (150-400); POLYS 82.9 %; RBC 2.35 mil/uL (4.20-5.00); RDW-CV 13.8 % (10.5-14.5); WBC 5.8 thou/uL (4.0-11.0)
[2021-09-21 04:49] LABS: CALCIUM 6.7 mg/dL (8.5-10.1); CREATININE 0.3 mg/dL (0.6-1.3); TOTAL BILIRUBIN 0.2 mg/dL (<0.1-1.0); TOTAL PROTEIN 4.4 g/dL (6.4-8.2)
[2021-09-21 04:50] LABS: POTASSIUM 4.3 mmol/L (3.5-5.1)
[2021-09-22] VITALS (75 sets, daily range): BP systolic 81–161; BP diastolic 32–92
[2021-09-22 04:32] LABS: ABSOLUTE LYMPHOCYTES 0.7 thou/uL (0.8-5.3); ABSOLUTE MONOCYTES 0.1 thou/uL (0.0-1.2); ABSOLUTE NEUTROPHILS 3.4 thou/uL (1.6-8.1); BASOPHILS 0.2 %; EOSINOPHILS 0.6 %; HEMATOCRIT 24.7 % (37.0-47.0); HEMOGLOBIN 8.2 gm/dL (12.0-15.0); LYMPHOCYTES 16.1 %; MCH 31.8 pg (26.0-34.0); MCHC 33.1 g/dL (28.0-37.0); MCV 96.3 fL (80.0-100.0); MONOCYTES 2.4 %; MPV 9.1 fl. (7.2-11.1); NUCLEATED RBCS 0 /100WBC; PLATELET COUNT* 169 thou/uL (150-400); POLYS 80.7 %; RBC 2.57 mil/uL (4.20-5.00); RDW-CV 14.2 % (10.5-14.5); WBC 4.2 thou/uL (4.0-11.0)
[2021-09-22 04:41] LABS: APTT 31.5 Seconds (25.0-31.3); PROTIME 10.3 Seconds (9.20-11.50)
[2021-09-22 04:44] LABS: ALBUMIN 2.1 g/dL (3.4-5.0); CALCIUM 7.3 mg/dL (8.5-10.1); CREATININE 0.4 mg/dL (0.6-1.3); TOTAL BILIRUBIN 0.3 mg/dL (<0.1-1.0)
[2021-09-22 11:17] LABS: PHOSPHORUS* 2.2 mg/dL (2.5-4.9)
[2021-09-22 14:00] LABS: BE -4.4 mmol/L (-2 to +3); PCO2 VENOUS 32.5 mmHg (41.0-51.0); PO2 VENOUS 131.5 mmHg (35.0-45.0)
== END 2021-09-22 23:10 | disposition short-term general hospital (02) | DRG 870 ==
LOC: M.ERS 16:07 → M.TBA-ER 19:50 → M.ICU 19:50 → M.TBA-ER 23:37 → M.ORTHSURG 09-03 02:24 → M.ICU 09-03 13:20
PROVIDERS: Family Medicine; Internal Medicine; Internal Medicine Critical Care Medicine; Nurse Practitioner Family; Pediatrics; ADMIT Internal Medicine; ATTEND Internal Medicine
PROC: XW033E5 Introduction of Remdesivir Anti-infective into Peripheral Vein, Percutaneous Approach, New Technology Group 5 (ICD-10-PCS; principal; 2021-09-02)
PROC: 5A0935A Assistance with Respiratory Ventilation, Less than 24 Consecutive Hours, High Flow/Velocity Cannula (ICD-10-PCS; principal; 2021-09-02)
PROC: XW033H5 Introduction of Tocilizumab into Peripheral Vein, Percutaneous Approach, New Technology Group 5 (ICD-10-PCS; 2021-09-03)
PROC: 0BH17EZ Insertion of Endotracheal Airway into Trachea, Via Natural or Artificial Opening (ICD-10-PCS; 2021-09-03)
PROC: 5A1955Z Respiratory Ventilation, Greater than 96 Consecutive Hours (ICD-10-PCS; 2021-09-03)
PROC: 02HV33Z Insertion of Infusion Device into Superior Vena Cava, Percutaneous Approach (ICD-10-PCS; 2021-09-03)
DX: A41.9 Sepsis, unspecified organism (principal); U07.1 COVID-19; J96.01 Acute respiratory failure with hypoxia; J12.82 Pneumonia due to coronavirus disease 2019; K85.90 Acute pancreatitis without necrosis or infection, unspecified; I26.99 Other pulmonary embolism without acute cor pulmonale; E87.1 Hypo-osmolality and hyponatremia; E87.0 Hyperosmolality and hypernatremia; N39.0 Urinary tract infection, site not specified; R04.2 Hemoptysis; M62.82 Rhabdomyolysis; Z68.41 Body mass index [BMI] 40.0-44.9, adult; F12.90 Cannabis use, unspecified, uncomplicated; E87.6 Hypokalemia; K76.0 Fatty (change of) liver, not elsewhere classified; R73.9 Hyperglycemia, unspecified; E87.70 Fluid overload, unspecified; I95.9 Hypotension, unspecified; J98.2 Interstitial emphysema; B96.89 Other specified bacterial agents as the cause of diseases classified elsewhere; D64.9 Anemia, unspecified; E66.9 Obesity, unspecified